=== PATIENT | male | born 1960 | race Caucasian/White ===

== ENCOUNTER 2018-08-19 01:49 | Inpatient (IN) | payer MEDICARE, MEDICAID ==
[~2018-08-19] VITALS: Ht 177.8 cm; Wt 73.0 kg
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
--- NOTE | 2018-08-19 02:35 | NUR ---
Called Data Clerk for sitter,
--- NOTE | 2018-08-19 02:47 | NUR ---
Phlebotomy in w/ pt., Aquatic Centre Manager in w/ pt.
[2018-08-19 02:59] LABS: *BLOOD, URINE NEGATIVE (NEGATIVE); *CLARITY,URINE CLEAR (CLEAR); *COLOR,URINE YELLOW (YELLOW); *KETONES,URINE TRACE (NEGATIVE); *PROTEIN,URINE 1+ (NEGATIVE); *UROBILINOGEN,URINE >=8.0 E.U./dl (NORMAL); LEUKOCYTE ESTERASE ,URINE NEGATIVE (NEGATIVE); NITRITE, URINE NEGATIVE (NEGATIVE); UGLUCOSE NEGATIVE (NEGATIVE)
[2018-08-19] MEDS ORDERED: IBUPROFEN 800 MG TABLET PO ONE (03:00)
[2018-08-19] MEDS ORDERED: OLANZAPINE 5 MG TABLET PO ONE (03:00)
[2018-08-19] MEDS ORDERED: OLANZAPINE 5 MG TABLET ONE (03:07)
[2018-08-19] MEDS ORDERED: IBUPROFEN 800 MG TABLET ONE (03:07)
[2018-08-19 03:16] LABS: ETHANOL < 3 MG/DL (0-0)
[2018-08-19 03:16] LABS: *BILIRUBIN,URIN 1+ (NEGATIVE)
[2018-08-19 03:17] LABS: CARBON DIOXIDE 30 mmol/L (21-32); CHLORIDE 97 mmol/L (98-107); CREATININE 0.8 mg/dL (0.6-1.3); GLUCOSE 80 mg/dL (74-106); POTASSIUM 2.9 mmol/L (3.5-5.1); UREA NITROGEN, BLOOD 10 mg/dL (7-18)
[2018-08-19 03:19] LABS: *AMPHETAMINE, URINE POSITIVE (NEGATIVE); *BARBITURATE, URINE NEGATIVE (NEGATIVE); *CANNABINOID, URINE NEGATIVE (NEGATIVE); *COCCAINE, URINE NEGATIVE (NEGATIVE); *OPIATE, URINE NEGATIVE (NEGATIVE); *PHENCYCLIDINE SCREEN,URINE NEGATIVE (NEGATIVE)
[2018-08-19 03:21] LABS: BASOPHILS % (AUTO) 0.5 % (0.0-2.0); EOSINOPHILS % (AUTO) 0.9 % (0.0-7.0); HEMATOCRIT 39.4 % (36.7-47.1); HEMOGLOBIN 13.4 g/dL (12.5-16.3); LYMPHOCYTES # (AUTO) 1.4 K/uL (20.0-40.0); LYMPHOCYTES % (AUTO) 25.3 % (20.5-51.5); MEAN CORPUSCULAR HEMOGLOBIN 32.7 uug (23.8-33.4); MEAN CORPUSCULAR HGB CONC 34 g/dL (32.5-36.3); MEAN CORPUSCULAR VOLUME 96.2 fL (73.0-96.2); MONOCYTES # (AUTO) 0.8 K/uL (2.0-10.0); MONOCYTES % (AUTO) 15.4 % (0.0-11.0); NEUTROPHILS # (AUTO) 3.1 K/uL (1.8-8.9); NEUTROPHILS % (AUTO) 57.9 % (38.5-71.5); PLATELET COUNT (AUTO) 115 K/uL (152-348); WHITE BLOOD COUNT (AUTO) 5.4 K/uL (3.6-10.2)
[2018-08-19 03:23] LABS: ALANINE AMINOTRANSFERASE 52 U/L (16-63); ALKALINE PHOSPHATASE 100 U/L (50-136); ASPARTATE AMINOTRANSFERASE 55 U/L (15-37); BILIRUBIN,DIRECT 0.3 mg/dL (0.0-0.2); BILIRUBIN,TOTAL 1.1 mg/dL (0.2-1.0); TOTAL PROTEIN, SERUM 7.5 g/dL (6.4-8.2)
[2018-08-19 03:27] LABS: BACTERIA,URINE NONE SEEN /HPF (NONE SEEN); MUCUS,URINE MANY /LPF (0-FEW); RBC,URINE 0-3 /HPF (0-3); SQUAMOUS EPITHELIAL CELL,UR FEW /HPF (NONE SEEN); WBC,URINE 0-3 /HPF (0-3)
[2018-08-19] MEDS ORDERED: POTASSIUM BICARBONATE/CIT AC 25 MEQ TABLET.EFF PO ONE (03:30)
[2018-08-19] MEDS ORDERED: POTASSIUM BICARBONATE/CIT AC 25 MEQ TABLET.EFF ONE (03:33)
[2018-08-19 03:37] LABS: EOSINOPHILS % (MANUAL) 2 % (0-8); LYMPHOCYTES % (MANUAL) 26 % (20-40); MONOCYTES % (MANUAL) 17 % (2-10); NEUTROPHILS % (MANUAL) 54 % (42-75)
[2018-08-19] MEDS ORDERED: LORAZEPAM 1 MG TABLET ONE (03:59)
--- NOTE | 2018-08-19 05:30 | NUR ---
Hector MART for psych evaluation, ETA 7:30
--- NOTE | 2018-08-19 08:12 | NUR ---
Labor Mediator assumes care. Hands off report received from VANESSA Beltre. Patient is waiting for the psych land surveying survey worker Vasu Mcqueen for psych evaluation. 1:1 sitter observation maintained. Patient is resting with eye closed, respiration:easy, NAD.
--- NOTE | 2018-08-19 09:11 | NUR ---
Patient is alert, awake, calm & asking for extra blankets and facial tissue. Comfort and safety measures maintained. Blankets and tissues were given. Patient ate full breakfast earlier with good appetite.
--- NOTE | 2018-08-19 09:49 | NUR ---
Vasu Mcqueen is here evaluating the patient. Loud and screaming voice was heard while being evaluated. Security was called for back-up.
--- NOTE | 2018-08-19 10:58 | NUR ---
Patient will be admitted on 5150 psych HOLD per Vasu Mcqueen. Patient is now waiting for an available MHU bed. Nursing natural gas plant supervisor Liban said that a MHU bed & nurse will be available at around [phone] today. 1:1 sitter maintained.
--- NOTE | 2018-08-19 12:09 | NUR ---
Patient is resting comfortably in bed with eyes closed. PATIENT IS PAIN FREE AT THIS TIME. Lunch tray is at bedside.
--- NOTE | 2018-08-19 14:36 | NUR ---
Patient ate 100% of the lunch tray, still waiting for available MHU bed & nurse@this time. No acute change in patient's condition seen.
--- NOTE | 2018-08-19 16:57 | NUR ---
Finally, room 138A is assigned for this patient. Pt. admitted to MHU , under care of Dr. Albarado for psych needs and Dr Rodriguez for internal medicine needs. Belongs List completed.
[2018-08-19] MEDS ORDERED: MAGNESIUM HYDROXIDE 30 ML LIQUID UDC PO PRN (17:30)
[2018-08-19] MEDS ORDERED: OMEP20TA20 PO (18:01)
[2018-08-19] MEDS: LORAZEPAM 0.5 MG TABLET PO PRN (20:49)
[2018-08-19 20:56] VITALS: BP 108/62
--- NOTE | 2018-08-20 01:59 | NUR ---
Received pt to care. Pt noted to be asleep in bed. Pt later arousable and req a ativan. It was administered. Pt req snacks and used the bathroom. Pt is withdrawn, clear speech, cooperative, unkempt appearance, insurance underwriter noticed little red dots all over the pt arms and upper torso area. I will continue to monitor and speak to pt more in the AM.
--- NOTE | 2018-08-20 10:20 | NUR ---
GPS: NURSING: NOTIFIED ZORAIDA ROTH PATIENT POTASSIUM ABNORMAL LEVEL OF 2.9 WITH NEW ORDER RECEIVED AT 1134 OF CBC , CMP, MAGNESIUM AND PHOSPHORUS LEVEL FOR TOMORROW 08/21/18. NEW ORDER TO DISCONTINUE OMEPRAZOLE AND START PROTONIX 40MG PO @ 0700 08/21/2018.
[2018-08-20 11:18] VITALS: BP 116/66
[2018-08-20] MEDS: LORAZEPAM 0.5 MG TABLET PO PRN (14:12)
[2018-08-20 16:00] VITALS: BP 128/77
[2018-08-20] MEDS: QUETIAPINE FUMARATE 25 MG TABLET PO SCH (16:39)
[2018-08-20] MEDS: MAG HYDROX/AL HYDROX/SIMETH 30 ML LIQUID UDC PO PRN ×2 (16:52→22:54)
[2018-08-20] MEDS: QUETIAPINE FUMARATE 100 MG TABLET PO SCH (20:03)
[2018-08-20 20:38] VITALS: BP 126/69
[2018-08-21] MEDS: PANTOPRAZOLE SODIUM 40 MG TABLET.DR PO SCH (06:14)
[2018-08-21 07:30] VITALS: BP 113/74
[2018-08-21 07:34] LABS: BASOPHILS % (AUTO) 0.7 % (0.0-2.0); EOSINOPHILS # (AUTO) 0.1 K/uL (0.0-0.7); HEMATOCRIT 37.9 % (36.7-47.1); HEMOGLOBIN 13.4 g/dL (12.5-16.3); LYMPHOCYTES # (AUTO) 1.6 K/uL (20.0-40.0); LYMPHOCYTES % (AUTO) 28.8 % (20.5-51.5); MEAN CORPUSCULAR HEMOGLOBIN 34.6 uug (23.8-33.4); MEAN CORPUSCULAR HGB CONC 35 g/dL (32.5-36.3); MEAN CORPUSCULAR VOLUME 97.8 fL (73.0-96.2); MONOCYTES # (AUTO) 1.3 K/uL (2.0-10.0); MONOCYTES % (AUTO) 22.3 % (0.0-11.0); NEUTROPHILS # (AUTO) 2.6 K/uL (1.8-8.9); NEUTROPHILS % (AUTO) 46.2 % (38.5-71.5); PLATELET COUNT (AUTO) 188 K/uL (152-348); RED BLOOD CELL COUNT(AUTO) 3.88 MIL/uL (4.06-5.63); WHITE BLOOD COUNT (AUTO) 5.7 K/uL (3.6-10.2)
[2018-08-21 08:11] LABS: EOSINOPHILS % (MANUAL) 3 % (0-8); LYMPHOCYTES % (MANUAL) 27 % (20-40); MONOCYTES % (MANUAL) 21 % (2-10); NEUTROPHILS % (MANUAL) 49 % (42-75)
[2018-08-21 08:16] LABS: BILIRUBIN,TOTAL 0.4 mg/dL (0.2-1.0); CREATININE 0.7 mg/dL (0.6-1.3); MAGNESIUM 1.7 mg/dL (1.8-2.4); PHOSPHOROUS 1.9 mg/dL (2.5-4.9); POTASSIUM 3.4 mmol/L (3.5-5.1); TOTAL PROTEIN, SERUM 6.5 g/dL (6.4-8.2)
[2018-08-21] MEDS: QUETIAPINE FUMARATE 25 MG TABLET PO SCH ×2 (08:41→16:28)
[2018-08-21] MEDS: SERTRALINE HCL 50 MG TABLET PO SCH (08:43)
[2018-08-21] MEDS ORDERED: POTASSIUM CHLORIDE 10 MEQ TAB.PRT.SR PO ONE (11:15)
[2018-08-21] MEDS ORDERED: NEUTRA PHOS PACKET PO ONE (11:15)
[2018-08-21] MEDS ORDERED: MAGNESIUM OXIDE 400 MG TABLET PO ONE (11:15)
[2018-08-21] MEDS: LORAZEPAM 0.5 MG TABLET PO PRN (11:54)
--- NOTE | 2018-08-21 12:19 | NUR ---
Initial Discharge Note:Patient has been homeless for "several years". Patient states he does not want to continue to be homeless and would like to find SNF placement. Patient will need substance abuse resources and mental health resources. Patient does not have an outpatient psychiatrist or PCP and will need referrals upon discharge. boiler plant worker will collaborate with patient and psychiatrist on a safe and proper discharge.
[2018-08-21 16:06] VITALS: BP 109/62
[2018-08-21] MEDS: THIAMINE HCL 100 MG TABLET PO SCH (16:28)
[2018-08-21] MEDS: FOLIC ACID 1 MG TABLET PO SCH (16:29)
[2018-08-21] MEDS: MULTIVITAMINS,THERAPEUTIC TABLET PO SCH (16:29)
[2018-08-21] MEDS: HYDROCODONE/APAP 10-325 MG TABLET PO PRN (16:30)
[2018-08-21 20:04] VITALS: BP 100/54
[2018-08-21] MEDS: QUETIAPINE FUMARATE 100 MG TABLET PO SCH (20:05)
[2018-08-22] MEDS: HYDROCODONE/APAP 10-325 MG TABLET PO PRN ×4 (00:27→21:10)
[2018-08-22] MEDS: PANTOPRAZOLE SODIUM 40 MG TABLET.DR PO SCH (06:12)
[2018-08-22 07:30] VITALS: BP 123/81
[2018-08-22] MEDS: FOLIC ACID 1 MG TABLET PO SCH (08:32)
[2018-08-22] MEDS: THIAMINE HCL 100 MG TABLET PO SCH (08:32)
[2018-08-22] MEDS: QUETIAPINE FUMARATE 25 MG TABLET PO SCH ×2 (08:33→17:42)
[2018-08-22] MEDS: SERTRALINE HCL 50 MG TABLET PO SCH (08:33)
[2018-08-22] MEDS: MULTIVITAMINS,THERAPEUTIC TABLET PO SCH (08:33)
[2018-08-22 16:08] VITALS: BP 112/61
[2018-08-22 20:08] VITALS: BP 100/59
[2018-08-22] MEDS: QUETIAPINE FUMARATE 100 MG TABLET PO SCH (21:10)
[2018-08-23] MEDS: HYDROCODONE/APAP 10-325 MG TABLET PO PRN ×3 (06:21→20:14)
[2018-08-23 06:37] LABS: EOSINOPHILS # (AUTO) 0.1 K/uL (0.0-0.7); HEMATOCRIT 38.3 % (36.7-47.1); LYMPHOCYTES # (AUTO) 1.6 K/uL (20.0-40.0); LYMPHOCYTES % (AUTO) 41.4 % (20.5-51.5); MEAN CORPUSCULAR HEMOGLOBIN 33.3 uug (23.8-33.4); MEAN CORPUSCULAR HGB CONC 34 g/dL (32.5-36.3); MEAN CORPUSCULAR VOLUME 98.3 fL (73.0-96.2); MONOCYTES # (AUTO) 0.9 K/uL (2.0-10.0); MONOCYTES % (AUTO) 22.6 % (0.0-11.0); NEUTROPHILS # (AUTO) 1.2 K/uL (1.8-8.9)
[2018-08-23 06:58] LABS: PLATELET COUNT (AUTO) 328 K/uL (152-348); WHITE BLOOD COUNT (AUTO) 3.8 K/uL (3.6-10.2)
[2018-08-23] MEDS: PANTOPRAZOLE SODIUM 40 MG TABLET.DR PO SCH (07:00)
[2018-08-23 07:06] LABS: CREATININE 0.8 mg/dL (0.6-1.3); MAGNESIUM 1.8 mg/dL (1.8-2.4); PHOSPHOROUS 4.7 mg/dL (2.5-4.9); POTASSIUM 4.5 mmol/L (3.5-5.1)
[2018-08-23 08:00] VITALS: BP 97/55
[2018-08-23] MEDS: THIAMINE HCL 100 MG TABLET PO SCH (08:44)
[2018-08-23] MEDS: SERTRALINE HCL 50 MG TABLET PO SCH (08:44)
[2018-08-23] MEDS: MULTIVITAMINS,THERAPEUTIC TABLET PO SCH (08:44)
[2018-08-23] MEDS: FOLIC ACID 1 MG TABLET PO SCH (08:44)
[2018-08-23] MEDS: QUETIAPINE FUMARATE 25 MG TABLET PO SCH ×3 (08:44→17:16)
[2018-08-23 10:37] LABS: BAND % (MANUAL) 1 % (0-10); BASOPHILS % (MANUAL) 1 % (0-2); EOSINOPHILS % (MANUAL) 5 % (0-8); LYMPHOCYTES % (MANUAL) 42 % (20-40); METAMYELOCYTES % 1 % (0-1); MONOCYTES % (MANUAL) 20 % (2-10); MYELOCYTES % 1 % (0-0); NEUTROPHILS % (MANUAL) 29 % (42-75)
[2018-08-23] MEDS: LORAZEPAM 0.5 MG TABLET PO PRN (12:25)
[2018-08-23] MEDS ORDERED: MINERAL OIL/PETROLATUM,WHITE 57 GM TUBE TOP PRN (15:30)
[2018-08-23 16:25] VITALS: BP 96/45
[2018-08-23] MEDS: ZOLPIDEM 5 MG TABLET PO PRN (20:13)
[2018-08-23] MEDS: QUETIAPINE FUMARATE 100 MG TABLET PO SCH (20:14)
[2018-08-23 20:15] VITALS: BP 99/52
[2018-08-24] MEDS: HYDROCODONE/APAP 10-325 MG TABLET PO PRN ×4 (05:47→23:08)
[2018-08-24] MEDS: PANTOPRAZOLE SODIUM 40 MG TABLET.DR PO SCH (06:07)
[2018-08-24 07:30] VITALS: BP 93/50
[2018-08-24] MEDS: FOLIC ACID 1 MG TABLET PO SCH (08:14)
[2018-08-24] MEDS: QUETIAPINE FUMARATE 25 MG TABLET PO SCH ×3 (08:14→16:21)
[2018-08-24] MEDS: THIAMINE HCL 100 MG TABLET PO SCH (08:14)
[2018-08-24] MEDS: MULTIVITAMINS,THERAPEUTIC TABLET PO SCH (08:14)
[2018-08-24] MEDS: SERTRALINE HCL 50 MG TABLET PO SCH (08:14)
[2018-08-24 16:53] VITALS: BP 94/57
[2018-08-24 20:49] VITALS: BP 99/42
[2018-08-24] MEDS: QUETIAPINE FUMARATE 100 MG TABLET PO SCH (21:00)
--- NOTE | 2018-08-25 02:12 | NUR ---
Received pt to care and he was noted to be sleeping, fiction writer observed pt chest rising and falling with breathing. Pt later came out of his room and req snacks. Snacks were provided. Pt sat in the TV room for approximately 1 hour. Pt then went back to bed. Approximately 2200 pt came out of his room req more snacks, which were provided. Pt at this time inquired about not receiving his seroquel. Real Estate Asset Manager explained to pt that due to his BP 99/42 HR 70, repeat BP by fiction writer was 100/[address] Albarado wanted the med held until he has a chance to see the patient tomorrow. Pt understood, pleasant, cooperative, alert and oriented x 2-3. Pt is now sleeping. I will continue to monitor.
[2018-08-25] MEDS: ACETAMINOPHEN 325 MG TABLET PO PRN (04:09)
[2018-08-25] MEDS: PANTOPRAZOLE SODIUM 40 MG TABLET.DR PO SCH (06:32)
[2018-08-25 07:30] VITALS: BP 99/63
[2018-08-25] MEDS: THIAMINE HCL 100 MG TABLET PO SCH (08:16)
[2018-08-25] MEDS: SERTRALINE HCL 50 MG TABLET PO SCH (08:16)
[2018-08-25] MEDS: HYDROCODONE/APAP 10-325 MG TABLET PO PRN ×3 (08:17→22:40)
[2018-08-25] MEDS: QUETIAPINE FUMARATE 25 MG TABLET PO SCH (08:17)
[2018-08-25] MEDS: MULTIVITAMINS,THERAPEUTIC TABLET PO SCH (08:17)
[2018-08-25] MEDS: FOLIC ACID 1 MG TABLET PO SCH (08:17)
--- NOTE | 2018-08-25 10:54 | NUR ---
Discharge Planning: touch up worker sent fax referrals to the following SNFs all with the contact printer dry filmGeorge: [facility] [ ; ] [facility] [ ; ] [facility] [ ; ] Addendum: 08/25/18 at 1446 by PAUL SAN Patient has been accepted at [facility] per disability services coordinatorSharla. Patient has also been accepted at [facility] per disability services coordinatorAaliyah.
[2018-08-25] MEDS: risperiDONE 2 MG TABLET PO SCH ×2 (13:13→21:29)
--- NOTE | 2018-08-25 15:51 | NUR ---
Firearms Report: SW completed and submitted [employer] firearms report for 5150 DTS certification.
[2018-08-25 17:07] VITALS: BP 100/52
[2018-08-25 20:03] VITALS: BP 99/52
[2018-08-25] MEDS: LORAZEPAM 0.5 MG TABLET PO PRN (20:38)
[2018-08-26] MEDS: PANTOPRAZOLE SODIUM 40 MG TABLET.DR PO SCH (06:00)
[2018-08-26] MEDS: HYDROCODONE/APAP 10-325 MG TABLET PO PRN (06:06)
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
[2018-08-26 08:23] VITALS: BP 100/62
[2018-08-26] MEDS: risperiDONE 2 MG TABLET PO SCH ×2 (09:12→20:38)
[2018-08-26] MEDS: MULTIVITAMINS,THERAPEUTIC TABLET PO SCH (09:12)
[2018-08-26] MEDS: THIAMINE HCL 100 MG TABLET PO SCH (09:12)
[2018-08-26] MEDS: FOLIC ACID 1 MG TABLET PO SCH (09:13)
[2018-08-26] MEDS: SERTRALINE HCL 50 MG TABLET PO SCH (09:13)
--- NOTE | 2018-08-26 12:06 | NUR ---
GPS: nursing: Patient reported this AM with pain of 6/10 and [facility] given at 6 AM, no distress at this time and able to perform ADL with minimal discomfort, continue to monitor and able to verbalize needs.
[2018-08-26] MEDS: HYDROCODONE/APAP 5-325MG TABLET PO PRN ×2 (12:34→18:12)
--- NOTE | 2018-08-26 15:40 | NUR ---
GROUP ACTIVITY NOTE: GOAL Patient will actively participate in the group activity of the day or relax out in the patio room with fellow patients. INTERVENTION Apartment Coordinator invited patient to participate in a group activity consisting of crossword puzzles and coloring held from 10:30-11:15 am out in the patio. RESPONSE The pt. expressed interest in participating in todays groups activity. However, he was making a phone call when he was invited to attend. Consequently, he joined the group later, but was still able to relax outside on the patio with other patients for the last 15 minutes of the group. The pt. was calm and cooperative throughout activity and kept to himself. PLAN Patient will be invited to attend the next group activity.
[2018-08-26 16:29] VITALS: BP 115/65
[2018-08-26 20:11] VITALS: BP 116/63
[2018-08-26] MEDS: ACETAMINOPHEN 325 MG TABLET PO PRN (20:38)
[2018-08-27] MEDS: HYDROCODONE/APAP 5-325MG TABLET PO PRN ×4 (03:10→18:04)
[2018-08-27] MEDS: PANTOPRAZOLE SODIUM 40 MG TABLET.DR PO SCH (06:42)
[2018-08-27 07:30] VITALS: BP 112/59
[2018-08-27] MEDS: THIAMINE HCL 100 MG TABLET PO SCH (08:27)
[2018-08-27] MEDS: risperiDONE 2 MG TABLET PO SCH ×2 (08:27→20:40)
[2018-08-27] MEDS: FOLIC ACID 1 MG TABLET PO SCH (08:27)
[2018-08-27] MEDS: MULTIVITAMINS,THERAPEUTIC TABLET PO SCH (08:27)
[2018-08-27] MEDS: SERTRALINE HCL 50 MG TABLET PO SCH (08:27)
[2018-08-27] MEDS: HYDROXYZINE PAMOATE 25 MG CAPSULE PO PRN ×3 (12:34→18:04)
[2018-08-27 16:09] VITALS: BP 103/62
--- NOTE | 2018-08-27 16:25 | NUR ---
Gps/Funding Coordinator- Adequate relief from his right hip pain , ambulates around , making his needs known to the staff. Less anxious this pm.Encouraged to eat in the dinning room during his meals.
[2018-08-27 21:45] VITALS: BP 111/69
[2018-08-27] MEDS: ZOLPIDEM 5 MG TABLET PO PRN (22:44)
[2018-08-28] MEDS: HYDROCODONE/APAP 5-325MG TABLET PO PRN ×3 (04:09→22:11)
[2018-08-28] MEDS: PANTOPRAZOLE SODIUM 40 MG TABLET.DR PO SCH (06:10)
[2018-08-28 07:59] VITALS: BP 97/55
[2018-08-28] MEDS: SERTRALINE HCL 50 MG TABLET PO SCH (08:25)
[2018-08-28] MEDS: THIAMINE HCL 100 MG TABLET PO SCH (08:25)
[2018-08-28] MEDS: risperiDONE 2 MG TABLET PO SCH ×2 (08:25→20:19)
[2018-08-28] MEDS: MULTIVITAMINS,THERAPEUTIC TABLET PO SCH (08:25)
[2018-08-28] MEDS: FOLIC ACID 1 MG TABLET PO SCH (08:26)
--- NOTE | 2018-08-28 11:57 | NUR ---
FLORENTINO received a call from Aaliyah from [facility] inquiring about pts discharge date. FLORENTINO provided Aaliyah with an update. FLORENTINO also verified that pt still had a room upon discharge; per Aaliyah. Florentino asked her to follow up on Friday with [facility] Staff.
[2018-08-28 16:00] VITALS: BP 109/69
[2018-08-28 20:08] VITALS: BP 104/61
--- NOTE | 2018-08-28 22:15 | NUR ---
RECEIVED PATIENT IN HIS ROOM, HE IS NOTED AWAKE A/O X 3. HE IS ABLE TO AMBULATE WITH STEADY GAIT AND ABLE TO MAKE HIS NEEDS KNOWN. HE IS NOTED WITHDRAWN, LOW MOOD, HOWEVER, UPON INTERVIEW HE DENIES SI, DENIES AH/VH. HE IS ABLE TO CONTRACT FOR SAFETY. PT C/O LOWER BACK PAIN 6/10 IN THE PAIN INTENSITY SCALE. NORCO 5-350MG WAS GIVEN. WILL MONITOR FOR EFFICACY. SAFETY WAS EMPHASIS. WILL CONTINUE TO MONITOR.
--- NOTE | 2018-08-29 06:47 | NUR ---
GPS/NSG PATIENT VISIBLE THIS MORNING ON THE UNIT COOPERATIVE, SHOWERED AND APPROACHED NURSING STATION ASKING FOR CEREAL, STAFF REQUESTED PATIENT WAIT FOR BREAKFAST, PATIENT BECAME ANGRY, AGITATED AND DEMANDING. THREW FWW TO THE FLOOR, NOT SPECIFICALLY AIMING AT ANYONE, MISSED STAFF MEMBER FROM EVS DEPARTMENT. SEVERAL STAFF MADE ATTEMPTS TO DE-ESCALATE PATIENT WITH INEFFECTIVE OUTCOME. SECURITY WAS CALLED FOR REINFORCEMENT PATIENT WAS SLAMMING DRAWERS, SLAMMING THE DOOR TO THE ROOM ULTIMATELY JAMMING IT ENGINEERING WAS CALLED TO REPAIR IT.
[2018-08-29] MEDS: PANTOPRAZOLE SODIUM 40 MG TABLET.DR PO SCH (07:11)
[2018-08-29] MEDS: HYDROXYZINE PAMOATE 25 MG CAPSULE PO PRN ×2 (07:13→18:01)
--- NOTE | 2018-08-29 07:16 | NUR ---
PATIENT NOTED LESS IRRITABLE, LESS DEMANDING, HE REQUESTED VISTARIL. VISTARIL 25MG PO PRN WAS GIVEN FOR AGITATION. WILL CONTINUE TO MONITOR
[2018-08-29 07:30] VITALS: BP 104/61
[2018-08-29] MEDS: MULTIVITAMINS,THERAPEUTIC TABLET PO SCH (09:18)
[2018-08-29] MEDS: SERTRALINE HCL 50 MG TABLET PO SCH (09:18)
[2018-08-29] MEDS: risperiDONE 2 MG TABLET PO SCH ×2 (09:18→20:50)
[2018-08-29] MEDS: FOLIC ACID 1 MG TABLET PO SCH (09:19)
[2018-08-29] MEDS: THIAMINE HCL 100 MG TABLET PO SCH (09:19)
[2018-08-29] MEDS: HYDROCODONE/APAP 5-325MG TABLET PO PRN (12:14)
[2018-08-29 15:58] VITALS: BP 90/50
--- NOTE | 2018-08-29 19:30 | NUR ---
RECEIVED PATIENT IN HIS ROOM IN BED, ASLEEP, BUT EASILY AROUSABLE. PATIENT NOTED CALM AND COOPERATIVE AT THIS TIME. SAFETY WAS EMPHASIS, BED AT LOWEST POSITION WITH WHEELS LOCKED, ROOM FREE FROM CLUTTER, WELL-LIT AND FREQUENT HEADCHECKS. WILL CONTINUE TO MONITOR.
[2018-08-29 20:00] VITALS: BP 111/56
[2018-08-30] MEDS: PANTOPRAZOLE SODIUM 40 MG TABLET.DR PO SCH (06:35)
[2018-08-30] MEDS: HYDROCODONE/APAP 5-325MG TABLET PO PRN (06:40)
[2018-08-30 07:28] LABS: BASOPHILS # (AUTO) 0.1 K/uL (0.0-8.0); BASOPHILS % (AUTO) 1.4 % (0.0-2.0); EOSINOPHILS # (AUTO) 0.1 K/uL (0.0-0.7); EOSINOPHILS % (AUTO) 1.9 % (0.0-7.0); HEMATOCRIT 36.5 % (36.7-47.1); HEMOGLOBIN 12.6 g/dL (12.5-16.3); LYMPHOCYTES # (AUTO) 1.5 K/uL (20.0-40.0); LYMPHOCYTES % (AUTO) 30.9 % (20.5-51.5); MEAN CORPUSCULAR HEMOGLOBIN 33.3 uug (23.8-33.4); MEAN CORPUSCULAR HGB CONC 34 g/dL (32.5-36.3); MEAN CORPUSCULAR VOLUME 96.8 fL (73.0-96.2); MONOCYTES # (AUTO) 0.6 K/uL (2.0-10.0); MONOCYTES % (AUTO) 11.8 % (0.0-11.0); NEUTROPHILS # (AUTO) 2.6 K/uL (1.8-8.9); PLATELET COUNT (AUTO) 399 K/uL (152-348); RED BLOOD CELL COUNT(AUTO) 3.77 MIL/uL (4.06-5.63); WHITE BLOOD COUNT (AUTO) 4.8 K/uL (3.6-10.2)
[2018-08-30 07:30] VITALS: BP 108/57
[2018-08-30 07:43] LABS: CREATININE 0.7 mg/dL (0.6-1.3); PHOSPHOROUS 4.3 mg/dL (2.5-4.9)
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
[2018-08-30] MEDS: THIAMINE HCL 100 MG TABLET PO SCH (08:53)
[2018-08-30] MEDS: risperiDONE 2 MG TABLET PO SCH (08:53)
[2018-08-30] MEDS: MULTIVITAMINS,THERAPEUTIC TABLET PO SCH (08:53)
[2018-08-30] MEDS: FOLIC ACID 1 MG TABLET PO SCH (08:53)
[2018-08-30] MEDS: SERTRALINE HCL 50 MG TABLET PO SCH (08:53)
--- NOTE | 2018-08-30 10:30 | NUR ---
Gps/Final Application Reviewer- Labile mood ,irritable ,yelling screaming at the Shipping Assistant. calling her names. Patient wants to go AMA, difficulty redirecting patient.
--- NOTE | 2018-08-30 10:49 | NUR ---
PT CURRENTLY VERBALIZING HE WANTS TO LEAVE AGAINST MEDICAL ADVICE. WHEN SETTING LIMITS, PT BECOMES VERBALLY ABUSIVE, "YOU CUNT" "YOU FUCKING BITCH". STATES HE CAN GET MUCH FOOD HE WANTS IN THE STREETS. CONTINUES TO ASK STAFF FOR SANDWICHES, SODAS, CRACKERS, ETC. FIXATED ON FOOD. PAGED DR. DUNCAN, AWAITING CALL BACK.
--- NOTE | 2018-08-30 11:06 | NUR ---
PT HAS CHANGED HIS MIND AGAIN AT THIS TIME. REMAINS EASILY IRRITABLE. STATES HE DOES NOT WANT TO LEAVE TODAY, HE WANTS TO LEAVE TOMORROW TO A P[facility]ENTIARY. STATES HE JUST WANTS SNACKS AND FOOD, AND WHEN STAFF DOES NOT PROVIDE WHAT HE WANTS, "IT PISSES ME OFF." CONTINUE TO ENFORCE UNIT RULES OF MEAL AND SNACK TIMES. ALSO NOTED A 9LB WEIGHT GAIN IN ONE WEEK. WILL NOTIFY DR. DUNCAN OF PT'S DESIRE TO STAY.
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
--- NOTE | 2018-08-30 15:00 | NUR ---
PT SIGNED AMA PAPERWORK AND BELONGINGS SHEET. LEFT UNIT AT THIS TIME ACCOMPANIED BY BUN MACHINE OPERATOR WITH ALL NOTED BELONGINGS. DENIES SUICIDAL AND HOMICIDAL IDEATIONS.
--- NOTE | 2018-08-30 15:00 | NUR ---
Gps/Child Support Specialist- Patient demanding to get and return all his belongings back to him right away , wants to go AMA again, he claimed no one care for him in this place. Patient was given early snacks as he demanding to have a snack. All belongings was given back to patient. Left unit in no distress, escorted by plant guard.
--- NOTE | 2018-08-31 10:32 | NUR ---
AMA Discharge Note: Patient chose to leave AMA yesterday, August 30, 2018. Patient had become verbally abusive toward staff and demanding that he receive more food. When patient felt demands were not met, he chose to leave AMA, despite staff encouraging patient to stay as patient had placement at two facilities including [facility] and [facility]. Patient was aware that he had placement but still decided to leave hospital and return to homelessness. Per Dr. Albarado discharge summary note, patient was encouraged to seek psychiatric and chemical dependency treatment. Patient was advised on what leaving AMA entailed and was provided with his belongings.
== END 2018-08-30 15:00 | disposition left against medical advice (07) | DRG 885 ==
LOC: ER 01:57 → GPS 17:09
PROVIDERS: ADMIT Psychiatry & Neurology Psychiatry; ATTEND Nurse Practitioner Acute Care
PROC: 0HBRXZZ Excision of Toe Nail, External Approach (ICD-10-PCS; principal; 2018-08-23)
DX: F33.3 Major depressive disorder, recurrent, severe with psychotic symptoms (principal); E44.1 Mild protein-calorie malnutrition; F10.188 Alcohol abuse with other alcohol-induced disorder; Z59.0 Homelessness; K21.9 Gastro-esophageal reflux disease without esophagitis; G89.29 Other chronic pain; F17.210 Nicotine dependence, cigarettes, uncomplicated; Z85.9 Personal history of malignant neoplasm, unspecified; F15.10 Other stimulant abuse, uncomplicated; E87.6 Hypokalemia; D69.6 Thrombocytopenia, unspecified; Y90.0 Blood alcohol level of less than 20 mg/100 ml; Z68.23 Body mass index [BMI] 23.0-23.9, adult; Z87.81 Personal history of (healed) traumatic fracture; Z86.19 Personal history of other infectious and parasitic diseases; E83.42 Hypomagnesemia; E83.39 Other disorders of phosphorus metabolism; B00.1 Herpesviral vesicular dermatitis; Z79.899 Other long term (current) drug therapy; B35.1 Tinea unguium; G62.1 Alcoholic polyneuropathy; B35.3 Tinea pedis; M21.40 Flat foot [pes planus] (acquired), unspecified foot; L57.0 Actinic keratosis
CPT/HCPCS: 36415; 71045; 80307; 83735; 84100; 84443; 85025; 93005; A4663; G0480